=== PATIENT | female | born 1990 | race Caucasian/White ===

== ENCOUNTER 2018-12-21 15:20 | Emergency (ER) | payer SELFPAY ==
[~2018-12-21] VITALS: Ht 157.5 cm; Wt 55.0 kg
[2018-12-21 15:23] VITALS: BP 137/90; Ht 157.5 cm; Wt 55.0 kg
== END 2018-12-21 16:11 | disposition home or self-care (01) ==
LOC: D.ER 15:20
DX: S60.221A Contusion of right hand, initial encounter (principal); W23.0XXA Caught, crushed, jammed, or pinched between moving objects, initial encounter; Y93.89 Activity, other specified; Y92.89 Other specified places as the place of occurrence of the external cause

== ENCOUNTER 2019-04-25 10:00 | Outpatient (CLI) | payer MEDICAID ==
[2018-12-21 15:23] VITALS: BMI 22.2
== END 2019-04-25 23:59 | disposition home or self-care (01) ==
LOC: D.MAMMO 10:00
PROVIDERS: ATTEND Nurse Practitioner Women's Health
DX: N63.11 Unspecified lump in the right breast, upper outer quadrant (principal); N63.14 Unspecified lump in the right breast, lower inner quadrant; Z12.39 Encounter for other screening for malignant neoplasm of breast